=== PATIENT | male | born 1940 | race Caucasian/White ===

== ENCOUNTER 2016-09-08 20:02 | Emergency (ER) | payer MEDICARE, OTHER ==
[2016-09-08 20:44] LABS: BASOPHIL 0.3 % (0-2); EOSINOPHIL 1.5 % (0-7); HCT 39.9 % (42.0-52.0); HGB 14.2 g/dl (13.2-18.0); INR 1.04 (0.9-1.2); MCH 32.6 pg (25.0-31.0); MCHC 35.6 g/dL (32.0-36.0); MCV 91.7 fL (78.0-100.0); MONOCYTE 12.3 % (0-12); MPV 9.5 fL (6.0-9.5); NEUTROPHIL 59.9 % (41-80); PLT 182 K/uL (150-400); PROTHROMBIN TIME 13.2 SECONDS (11.7-14.0); PTT 26.8 SECONDS (23.2-31.4); RBC 4.35 M/uL (4.70-6.00); RDW 12.7 % (11.5-14.0); WBC 6.5 K/uL (4.0-10.5)
[2016-09-08 20:54] LABS: CKMB 2.36 ng/mL (0.97-4.94); MYOGLOBIN 38 ng/mL (26-65); TROPONIN T < 0.010 ng/mL
[2016-09-08 20:55] LABS: ALBUMIN 3.9 g/dL (3.4-4.8); BILIRUBIN - TOTAL 0.5 mg/dL (0.1-1.0); CREATININE 1.1 mg/dL (0.7-1.2); GLOBULIN (CALCULATION) 2.9 g/dL (2.2-4.2); TOTAL PROTEIN 6.8 g/dL (6.4-8.3)
== END 2016-09-08 22:00 | disposition other institution (70) ==
LOC: FER 20:02
PROVIDERS: Emergency Medicine
DX: I63.9 Cerebral infarction, unspecified (principal); R29.810 Facial weakness; R47.81 Slurred speech; G83.24 Monoplegia of upper limb affecting left nondominant side; I10 Essential (primary) hypertension; R29.704 NIHSS score 4; K21.9 Gastro-esophageal reflux disease without esophagitis; Z79.899 Other long term (current) drug therapy; Z86.73 Personal history of transient ischemic attack (TIA), and cerebral infarction without residual deficits
CPT/HCPCS: 36415; 70450; 71010; 80053; 80061; 82550; 82553; 83874; 84484; 85025; 85610; 85730; 93005; J2997

== ENCOUNTER 2021-10-17 06:30 | Emergency (ER) | payer MEDICARE ==
[~2021-10-17 06:30] MED LIST: ATORVASTATIN CA80 MG PO; COZAAR50 MG PO; PLAVIX75 MG PO; PRILOSEC20 MG PO
== END 2021-10-17 08:30 | disposition home or self-care (01) ==
LOC: FER 06:30
DX: S83.207A Unspecified tear of unspecified meniscus, current injury, left knee, initial encounter (principal); I10 Essential (primary) hypertension; Z28.310 Unvaccinated for COVID-19; X58.XXXA Exposure to other specified factors, initial encounter; Y92.009 Unspecified place in unspecified non-institutional (private) residence as the place of occurrence of the external cause
CPT/HCPCS: 73560